=== PATIENT | female | born 2000 | race Caucasian/White ===

== ENCOUNTER 2022-08-17 07:48 | Outpatient (CLI) | payer BC, SELFPAY ==
--- NOTE | 2022-08-17 08:15 | CRLHL7_ITS ---
For Patients: As a result of the Century Cures Act, medical imaging exams and procedure reports are released immediately into your electronic medical record. You may view this report before your referring provider. If you have questions, please contact your health care provider. INDICATION: Pelvic discomfort. Irregular menses. Recent IUD removal. Reportedly the patient had a hemorrhagic ovarian cyst identified on an outside ultrasound in [place], not otherwise specified. TECHNIQUE: Transvaginal pelvic ultrasound. Grayscale and color spectral Doppler waveform analysis of the ovaries was performed. COMPARISON: October 06, 2019. FINDINGS: The previous identified intrauterine device October 06, 2019 is no longer evident. The uterus measures 7.0 x 2.4 x 4.3 cm. The endometrial stripe measures 7 mm transvaginally and is trilaminar in appearance. Normal-appearing left ovary measuring 3.9 x 1.8 x 2.2 cm. Normal-sized right ovary measuring 3.2 x 1.9 x 2.6 cm. Blood flow is documented in the ovaries both arterial and venous. No torsion. Small follicles are identified in the ovaries. There is a dominant simple follicular cyst in the right ovary measuring 1.5 x 1.3 x 1.3 cm. This is not hemorrhagic. IMPRESSION: 1. Small simple right ovarian follicular cyst measuring up to 1.5 cm. 2. Minimal free pelvic fluid which should be physiologic. 3. Normal endometrial stripe of 7 mm. Dictated by Chacho Salinas MD @ 08/17/2022 10:27:31 AM (Electronically Signed)
== END 2022-08-17 07:49 | disposition home or self-care (01) ==
LOC: US 07:48
PROVIDERS: PCP Physician Assistant Medical; Visit Provider Physician Assistant
DX: R10.2 Pelvic and perineal pain (principal); N83.201 Unspecified ovarian cyst, right side; N95.0 Postmenopausal bleeding
CPT/HCPCS: 76830